=== PATIENT | female | born 1995 | race Caucasian/White ===

== ENCOUNTER 2020-05-05 10:45 | Emergency (ER) | payer OTHER ==
--- NOTE | 2020-05-05 10:48 | ED Physician Documentation ---
PD HPI LOWER EXT INJURY - Stated complaint Stated Complaint: RT ANKLE INJURY - History obtained from History obtained from: Patient - History of Present Illness PD HPI LOW EXT INJURY LOCATION: Right, Ankle Type of injury: Twist (inversion of ankle when stepping off hay bale. Pain and swelling laterally. Unable to walk comfortably.) Timing - onset: Today Timing - details: Abrupt onset, Still present Worsened by: Moving, Palpating, Other (walking) Associated symptoms: Swelling. No: Weakness, Numbness Similar symptoms before: Has not had sx before Review of Systems Constitutional: denies: Fever Nose: denies: Rhinorrhea / runny nose, Congestion Throat: denies: Sore throat Respiratory: denies: Cough PD PAST MEDICAL HISTORY - Past Medical History Past Medical History: No - Allergies Allergies/Adverse Reactions: Allergies Allergy/AdvReac Type Severity Reaction Status Date / Time No Known Drug Allergies Allergy Verified 05/05/20 10:51 PD ED PE NORMAL - Vitals Vital signs reviewed: Yes - General General: Alert and oriented X 3, No acute distress (seems comfortable while sitting with leg up on bed. ), Well developed/nourished - Derm Derm: Normal color, Warm and dry - Extremities Extremities: Other (right ankle with swelling and tenderness at lateral malleolus and inferior to it. Not tender medially, at achilles, nor in foot. ) - Neuro Neuro: Alert and oriented X 3, No motor deficit, No sensory deficit, Normal speech Results - Vitals Vitals: Vital Signs - 24 hr 05/05/20 05/05/20 10:48 11:03 Temperature 36.5 C Heart Rate 58 L 64 Respiratory 17 16 Rate Blood Pressure 122/76 134/97 H O2 Saturation 100 100 Oxygen O2 Source Room air - Rads (name of study) right ankle Radiology: Prelim report reviewed (no fractures. Soft tissue swelling noted. ), See rad report PD MEDICAL DECISION MAKING - ED course Complexity details: reviewed results, considered differential, d/w patient Departure - Departure Disposition: 01 Home, Self Care Clinical Impression: Ankle sprain Qualifiers: Encounter type: initial encounter Involved ligament of ankle: unspecified ligament Laterality: right Qualified Code(s): S93.401A - Sprain of unspecified ligament of right ankle, initial encounter Condition: Stable Record reviewed to determine appropriate education?: Yes Instructions: ED Sprain Ankle W X Ray Comments: Ice elevate and rest your ankle often today. Ibuprofen or Tylenol as needed for pains. The swelling should go down over 2 to 3 days. It will feel improved at that point. However it will still need support. Use ankle brace when up and around for the next 2 to 3 weeks until fully healed so it does not reinjure. Crutches initially for nonweightbearing and progress weightbearing as tolerated. Progress towards normal activity over the next week or so as tolerated. Again continue with ankle brace. Recheck if not improved over the next 7 to 10 days. Forms: Activity restrictions Discharge Date/Time: 05/05/20 12:01
[2020-05-05] MEDS ORDERED: IBUPROFEN 600 MG TABLET PO STA (11:01)
[2020-05-05] MEDS ORDERED: ACETAMINOPHEN 325 MG TABLET PO STA (11:01)
[2020-05-05 11:05] VITALS: BP 134/97
--- NOTE | 2020-05-05 11:34 | XRAY Report ---
PROCEDURE: Ankle 3 View RT INDICATIONS: inversion ankle injury TECHNIQUE: 3 views of the ankle were acquired. COMPARISON: None FINDINGS: Bones: No fractures or dislocations. Ankle mortise is normally aligned. No suspicious bony lesions . Soft tissues: No tibiotalar joint effusion. Achilles tendon appears normal. Lateral soft tissue swe lling is noted and ligamentous injury cannot be excluded. IMPRESSION: No fracture. No osseous lesion. If there is continued clinical concern for pathology, then repeat lc in film radiographs (7-10 days) or advanced imaging (CT, MR, bone scan) should be considered for furt her evaluation. Reviewed by: Goldie Quinonez MD, PhD on 05/05/2020 11:33 AM [facility] Approved by: Goldie Quinonez MD, PhD on 05/05/2020 11:33 AM [facility] Station ID: [id number]
== END 2020-05-05 12:01 | disposition home or self-care (01) ==
LOC: ED 10:45
DX: S93.401A Sprain of unspecified ligament of right ankle, initial encounter (principal); X50.1XXA Overexertion from prolonged static or awkward postures, initial encounter; Y93.89 Activity, other specified
CPT/HCPCS: 73610; 99282; 99283; A9270

== ENCOUNTER 2020-11-14 08:00 | Outpatient (CLI) | payer OTHER ==
[2020-11-15 17:35] LABS: MUDS CUTOFF CONCENTRATIONS CUTOFF CONC BELOW:
[2020-11-15 18:21] LABS: AMPHETAMINE SCREEN,URINE NEGATIVE (NEGATIVE); BARBITURATE SCREEN,UR NEGATIVE (NEGATIVE); BENZODIAZEPINES SCREEN, URINE NEGATIVE (NEGATIVE); COCAINE SCREEN URINE NEGATIVE (NEGATIVE); METHADONE SCREEN, URINE NEGATIVE (NEGATIVE); METHAMPHETAMINES SCREEN, URINE NEGATIVE (NEGATIVE); OPIATE SCREEN, URINE NEGATIVE (NEGATIVE); OXYCODONE SCREEN, URINE NEGATIVE (NEGATIVE); PROPOXYPHENE SCREEN, URINE NEGATIVE (NEGATIVE); THC CANNABINOID SCREEN, URINE NEGATIVE (NEGATIVE); TRICYCLIC ANTIDEPRESSANT,URINE NEGATIVE (NEGATIVE)
[2020-11-15 18:22] LABS: BILIRUBIN,URINE NEGATIVE (NEGATIVE); GLUCOSE, URINE (UA) NEGATIVE (NEGATIVE); KETONES,URINE (UA) NEGATIVE (NEGATIVE); LEUKOCYTE ESTERASE, URINE NEGATIVE (NEGATIVE); NITRITE,URINE NEGATIVE (NEGATIVE); OCCULT BLOOD,URINE NEGATIVE (NEGATIVE); PROTEIN,URINE NEGATIVE (NEGATIVE); UROBILINOGEN,URINE 0.2 (NORMAL) E.U./dL (NORMAL)
[2020-11-15 18:23] LABS: CLARITY,URINE CLEAR (CLEAR)
[2020-11-15 18:38] LABS: BACTERIA,URINE Rare /HPF (None Seen); RBC,URINE 0-5 /HPF (0-5); SQUAMOUS EPITHELIAL CELL,UR RARE Squamous (<= Few); WBC,URINE 0-3 /HPF (0-5)
== END 2020-11-14 23:59 | disposition home or self-care (01) ==
LOC: LAB.WC 08:00
PROVIDERS: ATTEND Nurse Practitioner Obstetrics & Gynecology
DX: Z32.01 Encounter for pregnancy test, result positive (principal); Z87.440 Personal history of urinary (tract) infections
CPT/HCPCS: 80306; 81001; 87086

== ENCOUNTER 2020-12-01 16:51 | Outpatient (CLI) | payer OTHER ==
[2020-12-01 18:39] LABS: BASOPHILS % (AUTO) 0.3 %; EOSINOPHILS % (AUTO) 0.6 %; HCT - HEMATOCRIT 31.7 % (37.0-47.0); HGB - HEMOGLOBIN 11.1 g/dL (12.0-16.0); LYMPHOCYTES % (AUTO) 29.2 %; MEAN CORPUSCULAR HEMOGLOBIN 31.1 pg (27.0-31.0); MEAN CORPUSCULAR VOLUME 88.8 fL (81.0-99.0); MEAN PLATELET VOLUME 9.9 fL (7.9-10.8); MONOCYTES # (AUTO) 0.5 10^3/uL (0.0-1.0); MONOCYTES % (AUTO) 7.1 %; NEUTROPHILS # (AUTO) 4.3 10^3/uL (1.5-6.6); NEUTROPHILS % (AUTO) 62.7 %; PLT - PLATELET COUNT 183 10^3/uL (130-450); RED BLOOD COUNT 3.57 10^6/uL (4.20-5.40); RED CELL DISTRIBUTION WIDTH 12.5 % (12.0-15.0); WHITE BLOOD COUNT 6.9 x10^3/uL (4.8-10.8)
[2020-12-01 18:42] LABS: MUDS CUTOFF CONCENTRATIONS CUTOFF CONC BELOW:
[2020-12-01 18:53] LABS: AMPHETAMINE SCREEN,URINE NEGATIVE (NEGATIVE); BARBITURATE SCREEN,UR NEGATIVE (NEGATIVE); BENZODIAZEPINES SCREEN, URINE NEGATIVE (NEGATIVE); COCAINE SCREEN URINE NEGATIVE (NEGATIVE); METHADONE SCREEN, URINE NEGATIVE (NEGATIVE); METHAMPHETAMINES SCREEN, URINE NEGATIVE (NEGATIVE); OPIATE SCREEN, URINE NEGATIVE (NEGATIVE); OXYCODONE SCREEN, URINE NEGATIVE (NEGATIVE); PROPOXYPHENE SCREEN, URINE NEGATIVE (NEGATIVE); THC CANNABINOID SCREEN, URINE NEGATIVE (NEGATIVE); TRICYCLIC ANTIDEPRESSANT,URINE NEGATIVE (NEGATIVE)
--- NOTE | 2020-12-01 22:18 | Ultrasound Report ---
PROCEDURE: OB First Trimester INDICATIONS: +PREG TEST OUTSIDE/PRIOR DATING DATA: Last menstrual period (LMP): 09/18/2020. LMP-based estimated date of delivery (BRENDAN): 06/25/2021. First dating scan (date and location): 12/01/2020. Estimated date of delivery (BRENDAN) from first dating scan: 06/24/2021. The below data below was generated using the ultrasound generated BRENDAN of 06/24/2021 TECHNIQUE: Real-time scanning was performed of the fetus and maternal pelvic organs, with image documentation. COMPARISON: None FINDINGS: Embryo: Gestational sac at the uterine fundus measuring 5.1 cm mean sac diameter, corresponding to g estational age of 10 weeks 6 days. Fetus in the gestational sac has a crown-rump length of 3.9 cm, in dicating gestational age of 10 weeks 5 days. heart rate is 185 bpm. Measurement variability in dating: +/- 4 weeks by LMP, +/- 7 days by mean sac diameter (use before 6 weeks gestation if crown-rump length not able to be measured), +/- 5 days by crown-rump length (6-12 weeks gestation). Maternal organs: Ovaries are normal. Right corpus luteum cyst noted. IMPRESSION: Single live intrauterine gestation with average ultrasound age of 10 weeks 5 days. Reviewed by: Sukh Baez MD on 12/01/2020 10:16 PM PDT Approved by: Sukh Baez MD on 12/01/2020 10:16 PM PDT Station ID: [id number]
[2020-12-02 18:29] LABS: BILIRUBIN,URINE NEGATIVE (NEGATIVE); GLUCOSE, URINE (UA) NEGATIVE (NEGATIVE); KETONES,URINE (UA) NEGATIVE (NEGATIVE); LEUKOCYTE ESTERASE, URINE NEGATIVE (NEGATIVE); NITRITE,URINE NEGATIVE (NEGATIVE); OCCULT BLOOD,URINE TRACE-LYSE (NEGATIVE); PROTEIN,URINE NEGATIVE (NEGATIVE); UROBILINOGEN,URINE 0.2 (NORMAL) E.U./dL (NORMAL)
[2020-12-02 18:45] LABS: BACTERIA,URINE Rare /HPF (None Seen); CLARITY,URINE CLEAR (CLEAR); RBC,URINE 0-5 /HPF (0-5); SQUAMOUS EPITHELIAL CELL,UR FEW Squamous (<= Few); WBC,URINE 0-3 /HPF (0-5)
[2020-12-05 14:06] LABS: HEPATITIS B SURFACE ANTIGEN NON-REACTIVE (NON-REACTIVE); HEPATITIS C ANTIBODY NON-REACTIVE (NON-REACTIVE)
[2020-12-05 16:11] LABS: HIV AG/AB 4TH GEN NON-REACTIVE (NON-REACTIVE)
== END 2020-12-01 16:52 | disposition home or self-care (01) ==
LOC: DI 16:51 → LAB 16:52
PROVIDERS: ATTEND Nurse Practitioner Obstetrics & Gynecology
DX: Z36.89 Encounter for other specified antenatal screening (principal); Z32.01 Encounter for pregnancy test, result positive; Z87.440 Personal history of urinary (tract) infections
CPT/HCPCS: 36415; 80306; 81001; 85025; 86592; 86762; 86787; 86803; 86850; 86900; 86901; 87086; 87340; 87389

== ENCOUNTER 2020-12-11 08:00 | Outpatient (CLI) | payer OTHER | END 2020-12-11 23:59 | disposition home or self-care (01) | LOC: LAB.N 08:00 | PROVIDERS: ATTEND Nurse Practitioner | DX: R30.0 Dysuria (principal) | CPT/HCPCS: 87086; 87181 ==

== ENCOUNTER 2021-01-12 11:41 | Outpatient (CLI) | payer OTHER ==
[2021-01-12 17:41] LABS: BILIRUBIN,URINE NEGATIVE (NEGATIVE); GLUCOSE, URINE (UA) NEGATIVE (NEGATIVE); KETONES,URINE (UA) NEGATIVE (NEGATIVE); LEUKOCYTE ESTERASE, URINE SMALL (NEGATIVE); NITRITE,URINE NEGATIVE (NEGATIVE); OCCULT BLOOD,URINE TRACE-INTA (NEGATIVE); PROTEIN,URINE NEGATIVE (NEGATIVE); UROBILINOGEN,URINE 0.2 (NORMAL) E.U./dL (NORMAL)
[2021-01-12 17:44] LABS: CLARITY,URINE SL. CLOUDY (CLEAR); RBC,URINE 0-5 /HPF (0-5)
[2021-01-12 17:45] LABS: BACTERIA,URINE Rare /HPF (None Seen); MUCUS,URINE Few Strands; SQUAMOUS EPITHELIAL CELL,UR FEW Squamous (<= Few)
== END 2021-01-12 23:59 | disposition home or self-care (01) ==
LOC: LAB.N 11:41
PROVIDERS: ATTEND Emergency Medicine
DX: R30.0 Dysuria (principal)
CPT/HCPCS: 81001; 87086

== ENCOUNTER 2021-02-05 20:53 | Outpatient (CLI) | payer OTHER ==
--- NOTE | 2021-02-06 10:42 | Ultrasound Report ---
PROCEDURE: OB Detailed Eval INDICATIONS: OUTSIDE/PRIOR DATING DATA: Last menstrual period (LMP): 09/18/2020. LMP-based estimated date of delivery (BRENDAN): 06/25/2021. First dating scan (date and location): 12/01/2020. Estimated date of delivery (BRENDAN) from first dating scan: 06/24/2021. The below data below was generated using the first trimester BRENDAN of 06/24/2021 TECHNIQUE: Real-time scanning was performed of the fetus, with image documentation and biometric measurements. Endovaginal scanning: Not performed COMPARISON: 12/01/2020 FINDINGS: General: A single living intrauterine gestation is present. Presentation: Vertex Placenta: Placental position is posterior, without previa. Amniotic fluid index: 19.5 cm, normal for gestational age. Largest pocket is 5.9 cm heart rate: 148 beats per minute. Maternal cervical canal: Closed and 3.9 cm long; normal length is 2.5 cm or more. biometrics: Biparietal diameter: 4.7 cm, 20 weeks, 1 day Head circumference: Approximately 17.8 cm, 20 weeks, 2 days Abdominal circumference: 14.6 cm, 19 weeks, 6 days Femur length: 3.0 cm, 19 weeks, 2 days Estimated gestational age from initial scan: 20 weeks, 1 day. Composite gestational age from present scan: 19 weeks, 6 days Estimated weight and percentile: 307 g, 22nd percentile Measurement variability in biometric dating: +/- 10 days from 12-20 weeks gestation, +/- 2 weeks from 20-30 weeks gestation, +/- 3 weeks at 30 weeks gestation or later. Anatomic survey: Neuro: Intracranial contents are grossly normal, although accurate measurements of the lateral ventri cles and cerebellum are difficult to make due to position. Nuchal skin fold: Not well seen due to position Face: Nose and lips were not well seen due to position. facial profile appears normal. Spine: No evidence for spina bifida. Heart: 4-chambered heart is present, with normal ventricular outflow tracts. Diaphragm: Diaphragm is intact. Stomach: Left-sided stomach is present. Kidneys: No hydronephrosis. Normal is less than 5 mm in 2nd trimester, less than 7 mm in 3rd trimester. Cord: 3 vessel cord has orthotopic insertion. Bladder: Normal in size. Extremities: All 4 extremities are visualized. IMPRESSION: 1. A single living intrauterine with appropriate growth since the prior study. 2. Limited exam of the intracranial contents of the fetus due to position. Follow-up exam is re commended. Remainder of the anatomy is normal. Reviewed by: Ava Moreno MD on 02/06/2021 10:41 AM PDT Approved by: Ava Moreno MD on 02/06/2021 10:41 AM PDT Station ID: [id number]
== END 2021-02-05 20:54 | disposition home or self-care (01) ==
LOC: DI 20:53
PROVIDERS: ATTEND Advanced Practice Midwife
DX: Z34.02 Encounter for supervision of normal first pregnancy, second trimester (principal)

== ENCOUNTER 2021-03-01 20:28 | Outpatient (CLI) | payer OTHER ==
--- NOTE | 2021-03-02 18:20 | Ultrasound Report ---
PROCEDURE: OB F/U or Repeat INDICATIONS: SUPERVISION OF OUTSIDE/PRIOR DATING DATA: Last menstrual period (LMP): 09/18/2020. LMP-based estimated date of delivery (BRENDAN): 06/25/2021. First dating scan (date and location): 12/01/2020. Estimated date of delivery (BRENDAN) from first dating scan: 06/24/2021. The below data below was generated using the ultrasound BRENDAN of 06/24/2021 TECHNIQUE: Real-time scanning was performed of the fetus, with image documentation and biometric measurements. Endovaginal scanning: Not performed COMPARISON: Anatomy scan dated 02/05/2021, in which the cranial structures were not well visualized FINDINGS: General: A single living intrauterine gestation is present. Presentation: Vertex Placenta: Placental position is posterior, without previa. Amniotic fluid index: 17.5 cm, within normal limits for gestational age. heart rate: 145 beats per minute. Maternal cervical canal: Long and closed. Estimated gestational age from initial scan: 23 weeks 4 days . Other: Normal orbits, nose and lips, cerebral ventricles. IMPRESSION: 1. Living late second trimester intrauterine . 2. Normal cranial structures and intracranial contents, normal anatomy, completing the previous study. Reviewed by: Holland Jimenes MD on 03/02/2021 6:19 PM PDT Approved by: Holland Jimenes MD on 03/02/2021 6:19 PM PDT Station ID: [id number]
== END 2021-03-01 20:29 | disposition home or self-care (01) ==
LOC: DI 20:28
PROVIDERS: ATTEND Advanced Practice Midwife
DX: Z34.92 Encounter for supervision of normal pregnancy, unspecified, second trimester (principal); Z3A.23 23 weeks gestation of pregnancy

== ENCOUNTER 2021-04-23 15:33 | Outpatient (CLI) | payer OTHER ==
[2021-04-23 20:58] LABS: BASOPHILS % (AUTO) 0.1 %; EOSINOPHILS % (AUTO) 0.6 %; HCT - HEMATOCRIT 33.4 % (37.0-47.0); LYMPHOCYTES # (AUTO) 1.4 10^3/uL (1.5-3.5); LYMPHOCYTES % (AUTO) 19.5 %; MEAN CORPUSCULAR HEMOGLOBIN 30.5 pg (27.0-31.0); MEAN CORPUSCULAR HGB CONC 32.9 g/dL (32.0-36.0); MEAN CORPUSCULAR VOLUME 92.5 fL (81.0-99.0); MEAN PLATELET VOLUME 10.3 fL (7.9-10.8); MONOCYTES # (AUTO) 0.6 10^3/uL (0.0-1.0); MONOCYTES % (AUTO) 9.1 %; NEUTROPHILS # (AUTO) 4.9 10^3/uL (1.5-6.6); PLT - PLATELET COUNT 212 10^3/uL (130-450); RED BLOOD COUNT 3.61 10^6/uL (4.20-5.40); RED CELL DISTRIBUTION WIDTH 12.9 % (12.0-15.0); WHITE BLOOD COUNT 6.9 x10^3/uL (4.8-10.8)
== END 2021-04-23 15:34 | disposition home or self-care (01) ==
LOC: LAB.N 15:33
PROVIDERS: ATTEND Nurse Practitioner Obstetrics & Gynecology
DX: Z36.89 Encounter for other specified antenatal screening (principal)
CPT/HCPCS: 36415; 82950; 85025

== ENCOUNTER 2021-05-08 08:00 | Outpatient (CLI) | payer OTHER | END 2021-05-08 23:59 | disposition home or self-care (01) | LOC: LAB.WC 08:00 | PROVIDERS: ATTEND Nurse Practitioner Obstetrics & Gynecology | DX: R30.0 Dysuria (principal) | CPT/HCPCS: 87086 ==

== ENCOUNTER 2021-05-30 12:08 | Outpatient (CLI) | payer OTHER | END 2021-05-30 23:59 | disposition home or self-care (01) | LOC: LAB 12:08 | PROVIDERS: ATTEND Nurse Practitioner Obstetrics & Gynecology | DX: Z36.85 Encounter for antenatal screening for Streptococcus B (principal) | CPT/HCPCS: 87797 ==

== ENCOUNTER 2021-06-18 20:34 | Inpatient (IN) | payer OTHER ==
[2021-06-18] MEDS ORDERED: miSOPROStoL 200 MCG TABLET BC ONE (21:05)
[2021-06-18] MEDS ORDERED: OXYTOCIN/SODIUM CHLORIDE 500 ML IV PRN (21:05)
[2021-06-18] MEDS ORDERED: CARBOPROST TROMETHAMINE 250 MCG/ML AMP IM PRN (21:05)
[2021-06-18] MEDS ORDERED: AMPICILLIN 2 GM in SODIUM CHLORIDE 0.9% MINIBAG 100 ML IV ONE (21:05)
[2021-06-18] MEDS ORDERED: TRANEXAMIC ACID IN NACL 1,000 MG/100 ML BAG IV PRN (21:05)
[2021-06-18] MEDS ORDERED: SODIUM CHLORIDE FLUSH 0.9% 10 ML SYRINGE IVP PRN (21:05)
[2021-06-18] MEDS ORDERED: miSOPROStoL 200 MCG TABLET PR ONE (21:05)
[2021-06-18] MEDS ORDERED: METHYLERGONOVINE 0.2 MG/ML VIAL IM PRN (21:05)
[2021-06-18] MEDS ORDERED: fentaNYL 100 MCG/2 ML VIAL IVP PRN (21:05)
[2021-06-18] MEDS ORDERED: TERBUTALINE 1 MG/ML VIAL SUBQ PRN (21:05)
[2021-06-18] MEDS ORDERED: OXYTOCIN 10 UNIT/ML VIAL IM PRN (21:05)
[2021-06-18] MEDS ORDERED: LIDOCAINE-MPF 1% 30 ML VIAL ID PRN (21:05)
[2021-06-18] MEDS ORDERED: LACTATED RINGERS 1,000 ML ONE (21:06)
[2021-06-18] MEDS ORDERED: SODIUM CHLORIDE 0.9% 0 ML IV ONE (21:25)
[2021-06-18] MEDS ORDERED: SODIUM CHLORIDE FLUSH 0.9% 10 ML SYRINGE IVP SCH (22:00)
--- NOTE | 2021-06-18 22:06 | HISTORY & PHYSICAL EXAMINATION ---
Admit History - Visit Reason Visit Reason: Contractions - : 3 Parity: 2 Premature: 0 Ectopic: 0 : 0 Care: positive: [facility] Risk/History: positive: None Complications This : positive: Pre-eclampsia Smoking Status: Never smoker - Mother's Labs Mother's Blood Type: positive: AB Mother's RH: positive: Positive GBS: positive: Group B Strep Positive Rubella Status: positive: Immune Meds/Allgy - Allergies Allergies/Adverse Reactions: Allergies Allergy/AdvReac Type Severity Reaction Status Date / Time No Known Drug Allergies Allergy Verified 05/05/20 10:51 Review of Systems - Constitutional Constitutional: denies: Fatigue, Fever, Chills - Eyes Eyes: denies: Blurred vision, Spots in vision, Dipolpia - Cardiovascular Cariovascular: denies: Irregular heart rate, Palpitations, Chest pain, Edema - Respiratory Respiratory: denies: Cough, Wheezing, SOB at rest - Gastrointestinal Gastrointestinal: denies: Constipation, Diarrhea, Nausea, Vomiting - Integumentary Integumentary: denies: Rash, Pruritis - Neurological Neurological: denies: Headache Physical - Abdominal Exam Contraction Frequency (min/apart): 4-8 Contraction Intensity: positive: Moderate Uterine Resting Tone: positive: Soft - Monitoring Heart Rate Baseline: 145 Strip Review: positive: Category I - Presentation Presentation: positive: Vertex - Vaginal Exam Membranes: positive: Membranes intact Dilation (in cm): 4-5 Effacement (%): 60 Station: positive: -2 Cervical Position: positive: Posterior - Speculum Exam Speculum Exam Performed: positive: No Plan for Labor - Plan For Labor I expect patient to be DC'd or transferred within 96 hours.: Yes Plan for Labor: Crystal is a 26yo @ 39.0wks gestation by LMP c/w 10.5wk U/S who presents to [facility] with c/o contractions for the past 3-4 hours which are regular and have increased in frequency and intensity since they started. She denies vaginal bleeding or leakage of fluid and she reports +FM. SVE 4-5/60/-2, posterior, soft, vertex. She has a hx of preeclampsia with her first as is taking daily ASA 81mg and her BPs have remained WNL for the duration of her . Her BP on admission was mildly elevated and WNL on repeat. She denies DELVALLE, visual disturbances, RUQ or epigastric pain. She has been a patient of [facility] for the duration of her which has remained uncomplicated. She is noted to be GBS positive and will receive Ampicillin for prophylaxis per protocol. Dating criteria: LMP 09/18/2020 Initial U?S @ 10.5wks c/w LMP dating BRENDAN by LMP 06/25/2021 OB Hx: G1: 01/27/2016, @ 37wks, epidural, Female, 7lbs. Complicated by preeclam psia @ 37wks and IOL G2: 04/12/2018, @ 38wks, epidural, female, 7lbs. Uncomplicated G3: Current Medications: PNV, 81mg ASA PO daily, Ferrous sulfate 325mg daily Allergies: NKDA PMHx: unremarkable Surgical Hx: none Social Hx: Never smoker. No ETOH or IVDA. 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 Family Hx: Hypertension - mother; pancreatic cancer - father course: LMP: 09/18/2020 BRENDAN by LMP: 06/25/2021 Initial U/S: c/w LMP for BRENDAN 06/24/2021 FINAL BRENDAN: 06/25/2021 AB pos/Rubella- immune VZV:immune Genetic testing: declines FAS: Posterior placenta. JOON 19.5, largest pocket 5.9. EFW 22%. 3VC. Follow up exam for intracranial and facial views. Completion FAS WNL Glucola 114 Influenza: 03/27/2021 TDAP: 03/27/2021 Covid: declined GBS 05/30/21 @36.2 -POSITIVE HSV: denies self and partner Breast pump Rx- formula feeding MOD: (x2) : Gilbert, daughters Denver (5), Edgardo (3); Epidural; Boy; Peds @ [facility]; formula feeding pp contraception: COCs pap: 12/04/2020- nilm Physical Exam: Normocephalic, atraumatic Heart RRR w/o M/G/R Lungs CTAB Abdomen gravid, soft, nontender EFW 3400g FHR baseline 140s, moderate variability, + accels, no decels Contractions palpate moderate every 4-8 minutes with soft resting tone SVE 4-5/60/-2, posterior, soft. Vertex. Bilateral LE's trace edema Mood is good Assessment: 26yo @ 39.0wks gestation by LMP c/w 10.5wk U/S Early labor GBS positive FHR Category I Plan: Admit for expectant management. Intermittent monitoring. Ampicillin for GBS prophylaxis per protocol. Jacuzzi PRN. Nitrous oxide PRN. Epidural per maternal request. Anticipate .
[2021-06-18 22:13] LABS: BASOPHILS % (AUTO) 0.4 %; EOSINOPHILS % (AUTO) 0.6 %; HCT - HEMATOCRIT 33.5 % (37.0-47.0); HGB - HEMOGLOBIN 11.2 g/dL (12.0-16.0); LYMPHOCYTES # (AUTO) 1.4 10^3/uL (1.5-3.5); LYMPHOCYTES % (AUTO) 20.3 %; MEAN CORPUSCULAR HGB CONC 33.4 g/dL (32.0-36.0); MEAN CORPUSCULAR VOLUME 86.8 fL (81.0-99.0); MEAN PLATELET VOLUME 10.3 fL (7.9-10.8); MONOCYTES # (AUTO) 0.5 10^3/uL (0.0-1.0); MONOCYTES % (AUTO) 7.8 %; NEUTROPHILS # (AUTO) 4.9 10^3/uL (1.5-6.6); PLT - PLATELET COUNT 266 10^3/uL (130-450); RED BLOOD COUNT 3.86 10^6/uL (4.20-5.40); RED CELL DISTRIBUTION WIDTH 12.4 % (12.0-15.0)
[2021-06-18] MEDS ORDERED: LACTATED RINGERS 1,000 ML IV SCH (23:00)
[2021-06-19] MEDS ORDERED: BUPIVACAINE 0.25% PF 10 ML VIAL ONE (00:28)
[2021-06-19] MEDS ORDERED: fentaNYL 100 MCG/2 ML VIAL ONE (00:28)
[2021-06-19] MEDS ORDERED: ROPIVACAINE 0.2% 200 MG/100 ML BAG EP ONE (00:28)
[2021-06-19] MEDS ORDERED: NALOXONE 0.4 MG/ML VIAL IVP PRN (01:16)
[2021-06-19] MEDS ORDERED: ROPIVACAINE 0.2% 200 MG/100 ML BAG EP PRN (01:16)
[2021-06-19] MEDS ORDERED: ONDANSETRON 4 MG/2 ML VIAL IVP PRN (01:16)
[2021-06-19] MEDS ORDERED: ePHEDrine 50 MG/ML VIAL IVP PRN (01:16)
[2021-06-19] MEDS ORDERED: NALBUPHINE 10 MG/ML AMP IVP PRN (01:16)
[2021-06-19] MEDS ORDERED: diphenhydrAMINE INJ 50 MG/ML VIAL IVP PRN (01:16)
[2021-06-19] MEDS ORDERED: METOCLOPRAMIDE 10 MG/2 ML VIAL IVP PRN (01:16)
--- NOTE | 2021-06-19 01:19 | ANESTHESIA ---
Pre-Anesthesia VS, & Labs - Diagnosis active labor - Procedure labor epidural Vital Signs: Temp Pulse Resp BP Pulse Ox 97.8 C H 100 18 131/73 H 06/18/21 22:02 06/18/21 22:02 06/18/21 22:02 06/18/21 22:02 Height: 5 ft 11 in Weight (kg): 97.522 kg Body Mass Index: 29.9 BMI Classification: Overweight - NPO >8 hours - Is Patient ?: Yes - Lab Results Current Lab Results: Laboratory Tests 06/18/21 21:15: Blood Type AB POSITIVE, Antibody Screen NEGATIVE 06/18/21 21:15: WBC 7.0, RBC 3.86 L, Hgb 11.2 L, Hct 33.5 L, MCV 86.8, MCH 29.0, MCHC 33.4, RDW 12.4, Plt Count 266, MPV 10.3, Neut # (Auto) 4.9, Lymph # (Auto) 1.4 L, Crenshaw # (Auto) 0.5, Eos # (Auto) 0.0, Baso # (Auto) 0.0, Absolute Nucleated RBC 0.00, Nucleated RBC % 0.0 Lab results reviewed: Yes Fish Bones: 06/18/21 21:15 Home Medications and Allergies Active Medications Carboprost Tromethamine (Carboprost Tromethamine 250 Mcg/Ml Amp) 250 mcg IM ONCE PRN PRN Reason: Hemorrhage Stop: 06/19/21 21:04 Oxytocin/Sodium Chloride (Pitocin/Sodium Chloride) 500 mls @ 999 mls/hr IV PRN PRN; Protocol PRN Reason: POST- HEMORR PREVENTION Tranexamic Acid (Tranexamic 1,000 Mg/100ml-Nacl) 1,000 mg in 100 mls @ 600 mls/hr IV Q30M PRN PRN Reason: EBL >1200mL and within 3hr Ampicillin Sodium 1 gm/ Sodium (Chloride) 100 mls @ 200 mls/hr IV Q4H GORDON Lactated Ringer's (Lr) 1,000 mls @ 125 mls/hr IV .Q8H GORDON Lidocaine HCl (Lidocaine-Mpf 1% 30 Ml Vial) 30 ml ID ONCE PRN PRN Reason: PERINEAL REPAIR Stop: 06/19/21 21:05 Methylergonovine Maleate (Methylergonovine 0.2 Mg/Ml Vial) 0.2 mg IM ONCE PRN PRN Reason: Hemorrhage Stop: 06/19/21 21:04 Oxytocin (Oxytocin 10 Unit/Ml Vial) 10 unit IM ONCE PRN PRN Reason: Step One if no IV access. Stop: 06/19/21 21:04 Sodium Chloride (Sodium Chloride Flush 0.9% 10 Ml Syringe) 10 ml IVP PRN PRN PRN Reason: NEEDED PER PROVIDER ORDERS Sodium Chloride (Sodium Chloride Flush 0.9% 10 Ml Syringe) 10 ml IVP Q8H GORDON Terbutaline Sulfate (Terbutaline 1 Mg/Ml Vial) 0.25 mg SUBQ ONCE PRN PRN Reason: Tachystole Stop: 06/19/21 21:04 Allergies/Adverse Reactions: Allergies Allergy/AdvReac Type Severity Reaction Status Date / Time No Known Drug Allergies Allergy Verified 05/05/20 10:51 Anes History & Medical History - Anesthetic History Anesthesia Complications: reports: No previous complications Family history of Anesthesia Complications: Denies Family history of Malignant Hyperthermia: Denies - Medical History Cardiovascular: reports: None Pulmonary: reports: None Gastrointestinal: reports: None Urinary: reports: None Neuro: reports: None Musculoskeletal: reports: None Endocrine/Autoimmune: reports: None Blood Disorders: reports: None Smoking Status: Never smoker - Obstetrical History : 3 Parity: 2 Events: reports: None Complications: reports: Pre-eclampsia Exam General: Alert, Oriented x3, Cooperative, No acute distress Dental: WNL Plan Anesthesia Type: Epidural Consent for Procedure(s) Verified and Reviewed: Yes Code Status: Attempt Resuscitation ASA classification: 2-Mild systemic disease Is this case an emergency?: No
[2021-06-19] MEDS: AMPICILLIN 1 GM in SODIUM CHLORIDE 0.9% MINIBAG 100 ML IV SCH ×2 (01:30→05:35)
--- NOTE | 2021-06-19 04:20 | PROVIDER PROGRESS NOTE ---
Labor Progress Note - Uterine Monitoring Uterine Monitoring Mode: positive: External toco Contraction Frequency (min/apart): 6-8 Contraction Intensity: positive: Moderate Uterine Resting Tone: positive: Soft - Monitoring Monitor Mode: positive: External ultrasound Heart Rate Baseline: 130 Heart Rate Variability: positive: Moderate (6-25 bmp) Accelerations: positive: Present, 15x15 Decelerations: positive: None Strip Review: positive: Category I - Vaginal Exam Dilation (in cm): 6 Effacement (%): 80 Station: 0 Cervical Position: Midposition - Labor Progress Note Labor Progress Note/Additional Text: S: Feeling comfortable with epidural. Was able to get a little nap in. Denies concerns or complaints at this time. supportive at the bedside. O: FHR baseline 130, moderate variability, + accels, no decels Contractions palpate moderate every 6-8 minutes with soft resting tone SVE 6/80/0, midposition, vertex AROM large amount of clear fluid A: 26yo @ 39.1wks gestation by LMP c/w 10.5wk U/S Active labor GBS positive FH Category I P: Continue expectant management. Continuous monitoring. Continue ampicillin for GBS prophylaxis per protocol. Maintain epidural for pain management Encouraged position changes in bed with assistance of labor RN. Repeat SVE in 2 hours or sooner PRN. Considering initiation of pitocin if SVE unchanged at that time. Anticipate .
[2021-06-19] MEDS ORDERED: OXYTOCIN/SODIUM CHLORIDE 500 ML IV PRN (07:11)
[2021-06-19] MEDS ORDERED: HYDROCORTISONE 1% CREAM 28 GM TUBE PR PRN (07:11)
[2021-06-19] MEDS ORDERED: WITCH HAZEL/GLYCERIN 1 PAD TOP PRN (07:11)
--- NOTE | 2021-06-19 07:20 | DELIVERY NOTE ---
Delivery Note - Labor Labor: positive: Augmented by ARM - Infant Delivery Method Delivery Method: positive: Spontaneous vaginal delivery - Presentation Presentation: positive: Vertex, PEPE - left occiput anterior - Nuchal Cord Nuchal Cord: positive: Present, Reduced - Amniotic Fluid Description Amniotic Fluid Description: positive: Clear - Laceration Laceration: positive: None - Delivery Outcome Delivery Outcome: positive: Livebirth - Interior : positive: Placed in direct skin contact with mother, Bulb syringe, Stimulated, Warmed, [place] used sex: positive: Male - Cord Cord: positive: 3 vessels - Placenta Placenta: positive: Intact, Spontaneous - Estimated Blood Loss Estimated Blood Loss (in cc): 200 - Post Delivery Events Post Delivery Events: positive: No post delivery events - Delivery Comments (Free Text/Narrative) Delivery Comments (Free Text/Narrative): Labor: This 26yo @ 39.0wks gestation presented on 06/18/2021 @ approximately 2045 with c/o contractions. She was noted to contract every 4-6 minutes. SVE 4-5/60/-2, posterior, and vertex. She was admitted for expectant management. She received 3 doses of Ampicillin for GBS prophylaxis per protocol. FHR pattern demonstrated Category I pattern throughout labor. Normal labor course. Epidural placed per maternal request. AROM occurred @ 0408 and was noted to be a large amount of clear fluid. Pt progressed to c/c/+2 @ 0631 with onset of pushing at 0643. : Normal of viable male infant on 06/19/2021 @ 0650. Nuchal cord x 1 was reduced. The was placed on maternal abdomen, stimulated, dried, and placed skin to skin. Apgars were 8/9 at 1 and 5 minutes respectively. Pitocin administered via IV for hemostasis. The umbilical cord was allowed to stop pulsating at which time it was doubly clamped by CNM and cut by FOB. Cord blood was obtained. 3VC. Fundal massage and gentle cord traction applied for active management of the third stage. Placenta delivered spontaneously and intact at 0656. EBL 200mL. Fourth stage: Uterine fundus firm and there is no excessive bleeding. The perineum, vagina, and cervix were inspected and noted to be intact. Family bonding well. Both mother and baby were left in stable condition.
[2021-06-19] MEDS: IBUPROFEN 800 MG TABLET PO SCH ×3 (08:13→20:10)
[2021-06-19] MEDS: ACETAMINOPHEN 500 MG TABLET PO SCH ×2 (08:13→16:15)
[2021-06-19] MEDS: DOCUSATE SODIUM 100 MG CAPSULE PO SCH ×2 (08:14→20:10)
[2021-06-20] MEDS: ACETAMINOPHEN 500 MG TABLET PO SCH ×2 (00:06→09:12)
[2021-06-20] MEDS: IBUPROFEN 800 MG TABLET PO SCH ×2 (02:10→09:12)
--- NOTE | 2021-06-20 08:16 | Discharge Plan ---
Discharge Plan Problem Reviewed?: Yes Disposition: Home, Self Care Condition: Good Diet: Regular Activity Restrictions: No Restrictions Shower Restrictions: No Driving Restrictions: No Weight Bearing: Full Weight Instruction Topics: Vaginal After No Smoking: If you smoke, Please STOP! Call for help. Follow-up with: Traci Granger CNM, ARNP [Provider Admit Priv/Credential] - 2 Weeks
--- NOTE | 2021-06-20 08:24 | DISCHARGE SUMMARY ---
Discharge Summary Condition at Discharge: Good Discharge Disposition: 01 Home, Self Care - HOSPITAL COURSE Hospital Course: Date of Admission: 06/18/2021 Date of Discharge: 06/20/2021 Diagnosis on Admission: 1. 26yo @ 39.0wks gestation by LMP c/w 10.5wk U/S 2. Early labor 3. GBS positive 4. FHR Category I Diagnosis on Discharge: 1. 26yo PPD#1 s/p TSVD viable male 2. Bottle feeding formula 3. Normal recovery Brief history: She is a patient of [facility] who presented on 06/18/2021 @ 2045 with complaints of contractions. She was noted to contract every 4-6 minutes and SVE was 4-5/60/-2, posterior and vertex. She received adequate t reatment for GBS prophylaxis. She progressed spontaneously to deliver a viable male infant on 06/19/2021 @ 0650. Apgars were 8/9 at 1 and 5 minutes respectively. EBL 200mL. Perineum intact. She has been doing well in her course. She is ambulating and tolerating a regular diet. She is urinating without difficulty and her lochia is normal. Her pain is well controlled with oral medications. She is bottle feeding formula as she has done with her other babies and she is bonding well with her baby. She has been encouraged to continue taking ibuprofen and tylenol over the counter as needed for pain management. She intends to follow up with myself at [facility] in 2 weeks or sooner if needed. She has been given precautions to call if she has any worsening fevers, chills, abdominal pain, increased vaginal bleeding or foul smelling vaginal lochia. She verbalized understanding and agrees to above plan. She denies further questions or concerns at this time. - ALLERGIES Allergies/Adverse Reactions: Allergies Allergy/AdvReac Type Severity Reaction Status Date / Time No Known Drug Allergies Allergy Verified 05/05/20 10:51 - LABS Result Diagrams: 06/18/21 21:15
[2021-06-20] MEDS: DOCUSATE SODIUM 100 MG CAPSULE PO SCH (09:12)
[2021-06-20 09:28] VITALS: BP 140/69
--- NOTE | 2021-06-20 11:08 | Labor Flowsheet ---
Labor Flowsheet Datetime Report Generated by CPN: 06/20/2021 11:08 Datetime: 06/20/2021 08:31 VITAL SIGNS NBP Sys/Emma/Mean (mmHg): 140 : 69 : 84 Pulse: 72 Datetime: 06/20/2021 05:35 SpO2 (%): 100 Datetime: 06/19/2021 07:09 Membranes Ruptured Date/Time: 06/19/2021 04:08 Datetime: 06/19/2021 06:58 Medication Comments: POat pit started at 999 per A Bárbara CNm Instr Datetime: 06/19/2021 06:49 UTERINE ACTIVITY Monitor Mode: External Frequency (min): 2-3 Quality: Strong Duration (sec): 90-130 Pattern: Normal: <= 5 Contractions in 10 Minutes Resting Tone (Palpate): Relaxed ASSESSMENT A Monitor Mode: Telemetry FHR Baseline Rate : 125 FHR Baseline Changes: No Baseline Change Variability: Moderate 6-25 bpm Accelerations: 15X15 Decelerations: Variable Category: Category II Oxygen Method: Room Air Datetime: 06/19/2021 06:43 Contraction Comments: Pushing initiated Datetime: 06/19/2021 06:41 Communication Comments: A Bárbara CNM At bedside for delivery Datetime: 06/19/2021 06:31 VAGINAL EXAM Dilatation (cm): 10.0 Effacement (%): 100 Station: 2 Exam by: B Fitzgerald Vaginal Exam Comments: A Bárbara CNM Notified to come for delivery Datetime: 06/19/2021 06:02 Vaginal Bleeding: Normal Show Cervix, Consistency: Soft Cervix, Position: Midposition Datetime: 06/19/2021 05:36 Patient Position/Activity: Left Extreme Patient Care Comments: Peanut ball Datetime: 06/19/2021 05:33 MEDICATIONS Antibiotics: Ampicillin IV 1 Gm Datetime: 06/19/2021 05:01 Temperature (C): 36.9 Temperature Route: Oral Datetime: 06/19/2021 04:30 Monitor Interventions for UA: Ralls Adjusted Datetime: 06/19/2021 04:13 Amniotic Fluid Amount: Large Datetime: 06/19/2021 04:08 Membrane Status: Ruptured Membranes Rupture Method: Artificial Amniotic Fluid Color: Clear Amniotic Fluid Odor: Normal Pool: Positive Datetime: 06/19/2021 03:28 PATIENT CARE IV/Blood Work: IV Bolus Started; IV Bolus Given ml @ 300 Datetime: 06/19/2021 03:01 Respirations: 18 Datetime: 06/19/2021 02:53 Provider Notified (Name): A Bárbara CNM Datetime: 06/19/2021 01:34 I/O Interventions: Cadena Cath Inserted Datetime: 06/19/2021 00:56 Epidural Procedure Other: Pump Started Datetime: 06/19/2021 00:45 Epidural Procedure: Loading Dose Datetime: 06/19/2021 00:30 Pain Presence: Intermittent Pain Type: Cramping Pain Location: Abdomen; Back Pain Relief Measures: Comfort Measures Pain Assessment Comments: Epidural being placed Datetime: 06/19/2021 00:26 Comments: Maternal HR while sitting for epidural. RN in constant attendance. US adjusted Epidural Positioning: Sitting Datetime: 06/19/2021 00:25 Anesthesia Comments: K Fitzgerald BULLET MAKER at bedside Datetime: 06/19/2021 00:08 ANESTHESIA Anesthesia Plans: Local Datetime: 06/18/2021 21:44 PAIN Pain Scale: 3 Pain Coping: Talking Through Contractions MATERNAL ASSESSMENT Level of Consciousness: Alert DTR's/Clonus: DTRs 2+ Headache: Denies Breath Sounds, Left: Clear and Equal Breath Sounds, Right: Clear and Equal Nausea/Vomiting: Denies RUQ Epigastric Pain: Denies Provider Reviewed Strip: Yes COMMUNICATION Communication: RN at Bedside; RN Reviewed Strip; Provider at Bedside
== END 2021-06-20 11:07 | disposition home or self-care (01) | DRG 807 ==
LOC: WFO 20:34 → FBP 20:37 → WFO 21:17
PROVIDERS: ADMIT Nurse Practitioner Obstetrics & Gynecology; ATTEND Nurse Practitioner Obstetrics & Gynecology
PROC: 10E0XZZ Delivery of Products of Conception, External Approach (ICD-10-PCS; principal; 2021-06-19)
PROC: 10907ZC Drainage of Amniotic Fluid, Therapeutic from Products of Conception, Via Natural or Artificial Opening (ICD-10-PCS; 2021-06-19)
DX: O69.81X0 Labor and delivery complicated by cord around neck, without compression, not applicable or unspecified (principal); Z37.0 Single live birth; O99.824 Streptococcus B carrier state complicating childbirth; Z3A.39 39 weeks gestation of pregnancy; Z82.49 Family history of ischemic heart disease and other diseases of the circulatory system; Z87.59 Personal history of other complications of pregnancy, childbirth and the puerperium
CPT/HCPCS: 36415; 85025; 86850; 86900; 86901; A9270; J7120